=== PATIENT | female | born 1925 | race Caucasian/White ===

== ENCOUNTER 2016-03-25 00:46 | Observation (INO) | payer MEDICARE, OTHER ==
--- NOTE | 2016-03-25 01:06 | ERNOTE ---
Lower Extremity HPI - General Lower Extremities Pain: ankle: right Time Seen by Provider: 03/25/16 00:46 Source: patient Exam Limitations: no limitations - Immun/Allergies/Home Medications Immunizations: IMMUNIZATION HX Immunizations Up to Date Yes History of Influenza Vaccine No Hx Pneumococcal Vaccination Yes Allergies/Adverse Reactions: Allergies Allergy/AdvReac Type Severity Reaction Status Date / Time No Known Allergies Allergy Unverified 05/30/14 00:44 Home Medications: HOME MEDICATIONS Furosemide [Lasix] 20 mg PO BID 05/29/14 [Last Taken Unknown] Lisinopril [Zestril] mg PO 05/29/14 [Last Taken Unknown] Metoprolol Tartrate [Lopressor] mg PO BID 05/29/14 [Last Taken Unknown] Aspirin 81 mg PO DAILY 03/25/16 [Last Taken Unknown] - History of Present Illness Narrative: Patient went to kitchen to get a snack and fell (unsure why), injured her right ankle. She was able to pull herself up in a chair and call EMS. Per EMS her right ankle was bend lateral with no palpable pulse. It was reduced on the scene by EMS with good pulse and splinted. She also complains of rigth shoulder pain, comfortable now after receiving fentany in ambulance Date (Duration): 03/24/16 Time (Timing): 23:50 Location of Incident: home Method of Injury: Reports: fell Reason for Fall: Reports: unknown Loss of Consciousness: Reports: no loss of consciousness Other Injuries: Reports: other Subsequent Symptoms: Denies: sensory loss, numbness Prior Treament: Denies: recently seen, similar symptoms before Review of Systems - Review of Systems Constitutional: Absent: recent illness, fever ENT: Absent: nose congestion, sore throat Respiratory: Absent: shortness of breath Cardiology: Absent: chest pain Gastrointestinal/Abdominal: Absent: nausea, vomiting, abdominal pain Genitourinary: Present: other - chronic incontinence Musculoskeletal: Present: See HPI Neurological: Absent: headache, weakness, numbness - Patient's Past Medical History Patient History - Medical: Diabetes Type 2, Osteoarthritis Patient History - Cardiac/Respiratory: Atrial Fibrillation, Hypertension Patient History - Surgical Procedures: Hysterectomy, Total Knee Replacement, T & A LMP (females 10-50): Menopausal - Social History Living Situations: home Alcohol Use: none Drug Use: none ED Progress - Vital Signs Patient's Vital Signs:: I have reviewed the patient's vital signs. Vital Signs: Vital Signs 03/25/16 00:48 Temperature 36.4 C L Pulse Rate 57 L Respiratory 16 Rate Blood Pressure 152/62 O2 Sat by Pulse 97 Oximetry - EKG EKG: NSR - sinusbradycardia, other - no acute changes EKG read: Interp. by me - X-Ray X-Ray #1 X-Ray: ankle - distal tib fracture and dislocation Interpretation: Interp. by me X-Ray #2 X-Ray: shoulder - no acute findings Interpretation: Interp. by me X-Ray #3 X-Ray: ankle - poor alignment Interpretation: Interp. by me X-Ray #4 X-Ray: ankle - improved alignment with splint redone Interpretation: Interp. by me - Progress/Reassessment Chief Complaint: Ankle Injury/ Pain Progress Note-Subjective: 03/25/16 01:20 took off pillow splint splinted with OCL 03/25/16 01:30 discussed with sherley Browning to admit post splint good cap refill, able to move toes 03/25/16 01:44 discussed with Erica Valenzuela (NRP) sherley to admit for pain control Departure Clinical Impression: Ankle fracture, right Qualifiers: Encounter type: initial encounter Fracture type: closed Qualified Code(s): S82.891A - Other fracture of right lower leg, initial encounter for closed fracture - Departure Disposition: [facility] Condition: Good
[2016-03-25] MEDS ORDERED: MORPHINE SULFATE 2 MG/ML DISP.SYRIN IV ONE (01:27)
[2016-03-25] MEDS ORDERED: MORPHINE SULFATE 2 MG/ML DISP.SYRIN ONE (01:30)
[2016-03-25] MEDS ORDERED: ONDANSETRON HCL/PF 2 MG/ML VIAL IV PRN (02:04)
[2016-03-25] MEDS ORDERED: MORPHINE SULFATE 4 MG/ML SYRG IV PRN (02:04)
[2016-03-25 02:24] LABS: Hematocrit 33.1 % (37.0-47.0); Hemoglobin 10.4 gm/dL (12.5-16.0); Mean Cell Volume 84.4 fl (78-100); Mean Corpuscular Hemoglobin 26.5 pg (27-31); Mean Corpuscular Hgb Conc 31.4 g/dl (32-36); Mean Platelet Volume 10.4 fl (6.0-9.5); Neutrophil % 76.7 % (42-75.0); Platelet Count 175 K/mm3 (150-450); Red Blood Count 3.92 M/mm3 (4.2-5.4); Red Cell Distribution Width 15.2 % (11.5-14.0); White Blood Count 9.1 K/mm3 (4.0-10.5)
[2016-03-25 02:37] LABS: BUN/Creatinine Ratio 25.7 (9.0-21.6)
[2016-03-25 02:38] LABS: Albumin * 3.3 gm/dl (3.4-5.0); Anion Gap 16.3 mmol/L (6.8-13.8); Bilirubin, Total 0.3 mg/dL (0.0-1.1); Ca. Corrected For Albumin 9.2 mg/dL (8.4-10.2); Carbon Dioxide 24.4 mmol/L (24-32.6); Potassium 4.7 mmol/L (3.4-4.6); Total Protein 7.5 gm/dL (6.2-8.2)
--- NOTE | 2016-03-25 02:41 | HP ---
Chief Complaint - Chief Complaint Date of Service: 03/25/16 Time of Service: 02:35 Chief Complaint: "Fall, Ankle Pain". Source of HPI- Pt; reliable, ER Provider report. History of Present Illness: Ms. Montes is a 89-yr-old [place] pt who sees Dr. Guido Reece who is affiliated with the [facility]. Her PMH involves: A-fib, DM II, HTN, & Macular degeneration. Pt reports that she got up to snack tonight and she suddenly lost her balance while in the kitchen. She landed on the RT side of her body. She managed pull up to a chair and called the EMS who brought her to the [facility] ER. She denies having SOB or dizziness prior to the fall. She denies hitting her head on the surface or any objects. She had RT shoulder pain and RT ankle pain following the fall. During evaluation at the ED, the RT Shoulder x-ray did not have any acute findings. However, the RT foot showed dislocation/fracture of the ankle. The foot was aligned with a splint. Pt will need to be admitted inpatient for minimum of 2 midnights or more as she may need surgical intervention which requires pre & post -operative cares. - Patient's Past Medical History Patient History - Medical: Diabetes Type 2, Osteoarthritis, Other - Macular degeneration. Patient History - Cardiac/Respiratory: Atrial Fibrillation, Hypertension Patient History - Surgical Procedures: Hysterectomy, Total Knee Replacement, T & A LMP (females 10-50): Menopausal - Family History Father Family History - Medical: , No pertinent hx Mother Family History - Medical: Family History - Cardiac/Respiratory: Hypertension - Social History Living Situations: home Does anyone smoke in the home?: No Have you smoked in the past 12 months: No Do you dip or chew tobacco: No Alcohol Use: none Drug Use: none - Immunizations Immunizations Up to Date: Yes Hx Pneumococcal Vaccination: Yes History of Influenza Vaccine: Yes Review Of Systems (GEN) - Review of Systems Generalized/Overall Review: Present: Weakness. Absent: Chills, Fever, Diaphoresis, Weight loss EENTM: Present: Blurred Vision - LT. Absent: Eye Pain Respiratory: Present: Cough. Absent: Shortness of Breath Cardiac: Absent: Chest Pain, Edema, Palpitations Abdominal: Absent: Nausea, Vomiting, Hematemesis, Abdominal Pain, Constipation Genitourinary: Present: Dribbling. Absent: Burning, Frequency, Dysuria Musculoskeletal: Present: Joint Pain - RT, Neck Pain Neurological: Absent: Headache, Anxiety, Depressed Skin: Absent: Dryness, Lesions, Lumps Endocrine: Present: No Symptoms Reported. Absent: Intolerance to Cold, Intolerance to Heat Misc: All systems neg except as marked Allergies/Adverse Reactions: Allergies Allergy/AdvReac Type Severity Reaction Status Date / Time No Known Allergies Allergy Unverified 05/30/14 00:44 Home Medications: HOME MEDICATIONS Furosemide [Lasix] 20 mg PO BID 05/29/14 [Last Taken Unknown] Lisinopril [Zestril] mg PO 05/29/14 [Last Taken Unknown] Metoprolol Tartrate [Lopressor] mg PO BID 05/29/14 [Last Taken Unknown] Aspirin 81 mg PO DAILY 03/25/16 [Last Taken Unknown] Exam - Exam Vital Signs: Vital Signs - Last Taken Temp 36.4 C L 03/25/16 00:48 Pulse 55 L 03/25/16 01:54 Resp 18 03/25/16 01:54 BP 130/56 03/25/16 01:54 Pulse Ox 98 03/25/16 01:54 Constitutional: Present: Alert, Oriented x3, No distress ENT Exam: Present: normal ENT inspection, dry mucous membranes Eye Exam: bilateral eye: normal inspection, PERRL Neck: Present: full range of motion, supple, normal inspection, trachea midline Back Exam: Present: normal inspection, no CVA tenderness Breasts: Present: Exam deferred Respiratory: Present: lungs clear, no accessory muscle use, No wheezing Cardiovascular/Chest: Present: normal peripheral pulses, regular rate, rhythm, no murmur Abdomen: Present: Normal bowel sounds, soft, nontender /Rectal: Present: Exam deferred Extremity: Present: lower extremity edema - LT- non- pitting edema, other - Splinted RLE, Skin Exam: Present: no cyanosis, cool/dry Lymphatic: Present: no adenopathy Neurologic: Present: no motor/sensory deficits, alert, oriented x 3. Absent: dizzy/light-headedness Appearance: Present: appropriate appearance, appropriate insight Eye contact: Present: cooperative, good eye contact Thoughts: Present: normal thought pattern, no apparent hallucination Diagnostic Studies: Laboratory Results WBC 9.1 K/mm3 (4.0-10.5) 03/25/16 01:43 RBC 3.92 M/mm3 (4.2-5.4) L 03/25/16 01:43 Hgb 10.4 gm/dL (12.5-16.0) L 03/25/16 01:43 Hct 33.1 % (37.0-47.0) L 03/25/16 01:43 MCV 84.4 fl (78-100) 03/25/16 01:43 MCH 26.5 pg (27-31) L 03/25/16 01:43 MCHC 31.4 g/dl (32-36) L 03/25/16 01:43 RDW 15.2 % (11.5-14.0) H 03/25/16 01:43 Plt Count 175 K/mm3 (150-450) 03/25/16 01:43 MPV 10.4 fl (6.0-9.5) H 03/25/16 01:43 Immature Gran % (Auto) 0.60 % (0.001-0.429) H 03/25/16 01:43 Immature Gran # (Auto) 0.05 K/mm3 (0.000-0.0310) H 03/25/16 01:43 Neutrophils % 76.7 % (42-75.0) H 03/25/16 01:43 Lymphocytes % 12.5 % (20-51) L 03/25/16 01:43 Monocytes % 8.3 % (0.0-9) 03/25/16 01:43 Eosinophils % 1.7 % (0.0-3.0) 03/25/16 01:43 Basophils % 0.2 % (0.0-1.0) 03/25/16 01:43 Nucleated RBC % 0.0 k/mm3 (0-1) 03/25/16 01:43 Neutrophils # 7.0 K/mm3 (1.3-6.0) H 03/25/16 01:43 Lymphocytes # 1.1 k/mm3 (1.5-3.5) L 03/25/16 01:43 Monocytes # 0.8 k/mm3 (0.0-1.0) 03/25/16 01:43 Eosinophils # 0.2 k/mm3 (0.0-0.7) 03/25/16 01:43 Absolute Basophils 0.0 k/mm3 (0.0-0.1) 03/25/16 01:43 Assessment/Plan - Assessment/Plan (1) Ankle fracture, right Assessment: The X-ray film showed RT ankle fracture/dislocation. Ortho consulted by the ERP. Will admit for supportive cares with: immobilization, pain mgt & IVF hydration & also for surgical clearance. The EKG showed Sinus Bradycardia but there were no concerns for ST-T wave changes. Creatinine is mildly elevated at 1.71, but will be corrected with IVF. The CXR will be completed in the AM. According to RCRI score, she has a 0.4% chance of developing a cardiac event max/post- operatively. She is clear to proceed with surgery if that will be determined necessary by the Ortho. Problem: Acute Qualifiers: Encounter type: initial encounter Fracture type: closed Qualified Code(s) : S82.891A - Other fracture of right lower leg, initial encounter for closed fracture (2) HTN (hypertension) Assessment: Keep pain under control, verify medications from pharmacy in am. Problem: Chronic Qualifiers: Hypertension type: essential hypertension Qualified Code(s): I10 - Essential (primary) hypertension (3) Diabetes mellitus Assessment: Cheryle DM II - Accuchecks q 6 hrs. Problem: Chronic (4) A-fib Assessment: Stable- Place on remote telemetry. Verify medications in am. Problem: Chronic
[2016-03-25] MEDS: NORMAL SALINE 1,000 ML IV PRN ×3 (03:37→19:54)
[2016-03-25] MEDS: MORPHINE SULFATE 2 MG/ML DISP.SYRIN IV PRN ×7 (06:57→23:07)
[2016-03-25 08:05] LABS: Hematocrit 32.7 % (37.0-47.0); Hemoglobin 10.3 gm/dL (12.5-16.0); Mean Cell Volume 84.3 fl (78-100); Mean Corpuscular Hemoglobin 26.5 pg (27-31); Mean Corpuscular Hgb Conc 31.5 g/dl (32-36); Mean Platelet Volume 9.6 fl (6.0-9.5); Neutrophil # 7.2 K/mm3 (1.3-6.0); Neutrophil % 76.8 % (42-75.0); Platelet Count 212 K/mm3 (150-450); Red Blood Count 3.88 M/mm3 (4.2-5.4); Red Cell Distribution Width 15.2 % (11.5-14.0); White Blood Count 9.3 K/mm3 (4.0-10.5)
[2016-03-25 08:15] LABS: Anion Gap 15.1 mmol/L (6.8-13.8); BUN/Creatinine Ratio 24.8 (9.0-21.6); Calcium * 9.1 mg/dL (7.9-10.9); Carbon Dioxide 24.5 mmol/L (24-32.6); Estimated Creat Clear 25.6; Potassium 4.6 mmol/L (3.4-4.6)
--- NOTE | 2016-03-25 10:48 | PN ---
Subjective - Date and Time Seen Date: 03/25/16 Time: 09:45 Subjective Narrative: patient seen today with sister at the bedside, pt stated her right shoulder was painful but feeling better than it did on initial adm. right foot is still pain while in splint. pt stated if she is to have surgery done while in hospital, she wishes for procedure performed by Dr chin. If she is not able to have selected provider she wishes to be transfer to [place]. pt and sister stated they are also aware that pt has to be accepted at other facility before transfer. she demonstrated movement of toes to right foot, denies no pallor, numbness, tingling or shortness of breath. Objective - Review of Systems Generalized/Overall Review: Reports: No Symptoms Reported EENTM: Reports: No Symptoms Reported Respiratory: Reports: No Symptoms Reported Cardiac: Reports: No Symptoms Reported Abdominal: Reports: No Symptoms Reported Genitourinary Symptoms: Reports: No Symptoms Reported Musculoskeletal Complaints: Reports: Joint Pain, Other - right ankle pain and right shoulder pain Neurological: Reports: No Symptoms Reported Skin: Reports: No Symptoms Reported Endocrine: Reports: No Symptoms Reported - Vitals Vitals: Last Vital Signs Temp 36.5 C 03/25/16 06:38 Pulse 67 03/25/16 10:00 Resp 18 03/25/16 06:38 BP 133/67 03/25/16 06:38 Pulse Ox 97 03/25/16 06:38 - Abnormal Lab Findings Abnormal Lab Findings: Abnormal Lab Results 03/25/16 03/25/16 Range/Units 07:48 07:48 RBC 3.88 L (4.2-5.4) M/mm3 Hgb 10.3 L (12.5-16.0) gm/dL Hct 32.7 L (37.0-47.0) % MCH 26.5 L (27-31) pg MCHC 31.5 L (32-36) g/dl RDW 15.2 H (11.5-14.0) % MPV 9.6 H (6.0-9.5) fl Immature Gran # (Auto) 0.04 H (0.000-0.0310) K/mm3 Neutrophils % 76.8 H (42-75.0) % Lymphocytes % 11.3 L (20-51) % Monocytes % 10.9 H (0.0-9) % Neutrophils # 7.2 H (1.3-6.0) K/mm3 Lymphocytes # 1.1 L (1.5-3.5) k/mm3 Anion Gap 15.1 H (6.8-13.8) mmol/L BUN 36 H (3-23) mg/dL Creatinine 1.45 H (0.4-1.4) mg/dL Est GFR (Non-Af Amer) 36 L (60-130) mL/min BUN/Creatinine Ratio 24.8 H (9.0-21.6) Random Glucose 137 H (70-110) mg/dL - Exam Constitutional: Present: Alert, Oriented x3, Cooperative, Well developed, Well nourished, No distress, Elderly, Obese ENT Exam: Present: moist mucous membranes Neck: Present: full range of motion Breasts: Present: Exam deferred Respiratory: Present: chest non-tender, lungs clear, normal breath sounds, no respiratory distress Cardiovascular/Chest: Present: normal peripheral pulses, regular rate, rhythm, no chest tenderness, no edema Abdomen: Present: Normal bowel sounds, soft, nontender, nondistended, no rebound tenderness /Rectal: Present: Exam deferred Extremity: Present: other - left foot limited range of motion left ankle splint. left shoulder pain on palpation Skin Exam: Present: normal color, warm/dry, no cyanosis Neurologic: Present: oriented x 3 Appearance: Present: appropriate appearance Eye contact: Present: cooperative, good eye contact Thoughts: Present: normal thought pattern Assessment/Plan Plan Narrative: Ankle fracture, right pt report of mecahanical fall while at home In ER seen on Xray right ankle: severely displaced later and medial malleolus fracture. Ortho consulted and following Immobilization splint was applied in ER Continue with iv/ oral pain medications PT/OT evaluation and treatment. encourage use of I/S Pt is medically appropriate for planned procedure. Hypertension- stable Today BP 133/67 Continue to monitor vital signs May resume home medications Diabetes mellitus- stable Accu-checks q 6 hrs. low sodium/ consistent carb diet low dose sliding scale insulin Acute kidney injury- likely due to oral intake and use of diuretic at home- gradually improving on adm Bun/ cre ---->44/1.71----->36/1.45 gradually improving with IVF encourage oral intake and monitor I/O Will hold lisinopril, Lasix and metformin for now. will resume when SY improved BMP in am A-fib- stable Continue with telemetry monitoring On adm EKG: Sinus Bradycardia but there were no concerns for ST-T wave changes. while at home pt was on aspirin 325mg daily, rate control with metoprolol 50mg BID Continue to monitor vital signs Code status : DNR VTE ppx: SCD - Problems/Diagnosis (1) Ankle fracture, right Problem: Acute Qualifiers: Encounter type: initial encounter Fracture type: closed Qualified Code(s) : S82.891A - Other fracture of right lower leg, initial encounter for closed fracture (2) A-fib Problem: Chronic (3) Diabetes mellitus Problem: Chronic (4) HTN (hypertension) Problem: Chronic Qualifiers: Hypertension type: essential hypertension Qualified Code(s): I10 - Essential (primary) hypertension
[2016-03-25] MEDS ORDERED: ACETAMINOPHEN 500 MG TABLET PO PRN (11:17)
[2016-03-25] MEDS: INSULIN LISPRO 100 UNITS/ML VIAL SC SCH ×3 (11:57→21:10)
--- NOTE | 2016-03-25 13:22 | CONS ---
- Reason for consultation (1) Ankle fracture, right Date of Service: 03/25/16 HPI - General Date of Service: 03/25/16 Narrative: Patient is 89-year-old female with history of falls this morning early patient states that she had immediate onset of pain and noted deformity to her right ankle she was transported by ambulance to [facility] emergency room x-rays were obtained revealing a comminuted displaced bimalleolar ankle fracture. I was consult. Advised that the patient should be splinted. Patient was then admitted to the hospital for pain control. Source: patient Exam Limitations: no limitations - History of Present Illness Allergies/Adverse Reactions: Allergies No Known Allergies Allergy (Unverified 05/30/14 00:44) Home Medications: Home Medications Medication Instructions Recorded Last Taken Acetaminophen [Tylenol] 1 - 2 tab PO Q4H PRN 03/25/16 Unknown Aspirin 325 mg PO DAILY 03/25/16 Unknown Calcium Carbonate/Vitamin D3 1 each PO DAILY 03/25/16 Unknown [Calcium 600 + D3 Softgel] Furosemide [Lasix] 20 mg PO DAILY 03/25/16 Unknown Glucosamine HCl 500 mg PO DAILY 03/25/16 Unknown Lisinopril [Zestril] 40 mg PO DAILY 03/25/16 Unknown Metoprolol Tartrate [Lopressor] 50 mg PO BID 03/25/16 Unknown Multivitamin [One Daily Essential] 1 each PO DAILY 03/25/16 Unknown Simvastatin [Zocor] 10 mg PO HS 03/25/16 Unknown Vitamin A/Vit C/Vit E/Selenium 1 each PO DAILY 03/25/16 Unknown [Prevent Softgels] metFORMIN HCL [Glucophage] 500 mg PO BIDWM 03/25/16 Unknown - Patient's Past Medical History Patient History - Medical: Diabetes Type 2, Osteoarthritis, Other - Macular degeneration. Patient History - Cardiac/Respiratory: Atrial Fibrillation, Hypertension Patient History - Surgical Procedures: Hysterectomy, Total Knee Replacement, T & A LMP (females 10-50): Menopausal - Family History Father Family History - Medical: , No pertinent hx Mother Family History - Medical: Family History - Cardiac/Respiratory: Hypertension - Social History Living Situations: home Does anyone smoke in the home?: No Smoking Status: Never smoker Have you smoked in the past 12 months: No Do you dip or chew tobacco: No Alcohol Use: none Drug Use: none Procedures CL REDUC DISLOC-SHOULDER (12/02/11) Medications - Medications Current Medications: Current Medications Sodium Chloride (Sodium Chloride 0.9%) 1,000 mls @ 125 mls/hr IV .Q8H PRN PRN Reason: HYDRATION Stop: 04/24/16 03:10 Last Admin: 03/25/16 11:48 Dose: 125 mls/hr Insulin Human Lispro (Humalog) 0 units SC ACHSINS DENILSON PRN Reason: Protocol Stop: 04/24/16 12:01 Last Admin: 03/25/16 11:57 Dose: Not Given Morphine Sulfate (Morphine Sulfate) 1 mg IV Q30M PRN PRN Reason: Severe Pain Stop: 04/24/16 02:05 Last Admin: 03/25/16 11:52 Dose: 1 mg Physical Examination - Exam Narrative: Patient has a splint on to her right ankle andfoot. The splint was removed. She had noted tenting over the medial malleolar region. He had a small fracture blister present over the medial aspect of her ankle. Patient has a large amount of swelling noted to the right ankle and foot. There is noted ecchymosis throughout. No evidence of open wounds were seen. Patient has a decreased but present dorsalis pedis and posterior tibial pulse. Admits normal light touch sensation to the right foot and ankle. Vital Signs: Vital Signs - Last Taken Temp 36.4 C L 03/25/16 10:59 Pulse 64 03/25/16 10:59 Resp 16 03/25/16 10:59 BP 117/52 03/25/16 10:59 Pulse Ox 97 03/25/16 10:59 O2 Oxygen Delivery Method Room Air - Results and Findings: Narrative: Patient initially had some concerns about wanting to be transported to [facility] prior to our consultation. Wishes to follow-up and have surgery with Dr. Coe. This case been discussed and reviewed with Dr. Caal patient's x-rays have been reviewed. This revealed that the reduction wasn't complete from the emergency room. Patient was seen in her hospital bed today. With gentle manipulation we were able to reduce her ankle back into a normal neutral position. She tolerated the procedure well. A new well-padded AO splint was placed with posterior splints. We will be working with her as far as arrangements for care. She will need to be nonweightbearing on her right foot ankle. Upon discharge patient will have follow-up arranged with Dr. Coe for next week. She is to keep her foot ankle elevated diligently. Lab/Microbiology results last 24 hrs: Abnormal/Pending Laboratory Last 24 HRS 03/25/16 03/25/16 07:48 07:48 RBC 3.88 L Hgb 10.3 L Hct 32.7 L MCH 26.5 L MCHC 31.5 L RDW 15.2 H MPV 9.6 H Immature Gran # (Auto) 0.04 H Neutrophils % 76.8 H Lymphocytes % 11.3 L Monocytes % 10.9 H Neutrophils # 7.2 H Lymphocytes # 1.1 L Anion Gap 15.1 H BUN 36 H Creatinine 1.45 H Est GFR (Non-Af Amer) 36 L BUN/Creatinine Ratio 24.8 H Random Glucose 137 H - Assessments/Findings (1) Ankle fracture, right Problem: Acute Qualifiers: Encounter type: initial encounter Fracture type: closed Qualified Code(s) : S82.891A - Other fracture of right lower leg, initial encounter for closed fracture
[2016-03-25] MEDS: ASPIRIN 325 MG TABLET.DR PO SCH (14:31)
--- NOTE | 2016-03-25 16:28 | PN ---
Progess Note - Interim Narrative: 03/25/16 16:25 Closed reduction and splinting attempted twice with inability to maintain reduction in splint. Patient will require closed reduction and external fixator placement in the OR. Risks and benefits discussed with patient. Consent obtained on the floor. Will plan for d/c to nursing facility likely tomorrow with plan for her to follow up in Orthopedic clinic as an outpatient to follow her swelling and determine timing for definitive fixation. Keep patient NPO. Joseph Meléndez MD
[2016-03-25] MEDS ORDERED: SIMVASTATIN 10 MG TABLET PO SCH (21:00)
[2016-03-25] MEDS ORDERED: ceFAZolin SODIUM 1 GM VIAL IV ONE (21:15)
[2016-03-25] MEDS ORDERED: NORMAL SALINE 1,000 ML IV ONE (21:52)
[2016-03-25] MEDS: NORMAL SALINE 1,000 ML IV ONE (21:55)
--- NOTE | 2016-03-25 22:39 | OR ---
Operative Report - Dictated Report Narrative: Date: 03/25/2016 Surgeon: Joseph Meléndez M.D. [employer] Patterns: Rey Pelaez PA-C Anesthesia: Spinal Preoperative diagnosis: Right unstable bimalleolar ankle fracture. Postoperative diagnosis: Right unstable bimalleolar ankle fracture. Procedure: 1. Closed reduction of right bimalleolar ankle fracture. 2. Placement of uniplanar ankle spanning external fixator Estimated blood loss: None Tourniquet time: 28 Minutes at 300 millimeters mercury Retained implants: [employer] Jet-X ankle spanning external fixator Specimens: None Complications: None Indications: Gilma is a 89-year-old female who sustained a ground-level fall resulting in a injury to the right ankle. They were seen in the emergency department with images obtained revealing the above injury. She was admitted to the hospital by internal medicine for pain control and orthopedics was consulted. It was noted that she was incompletely reduced on her plain films therefore a closed reduction with splint placement was attempted on the floor. Postreduction films demonstrated loss of reduction so a second closed reduction attempt was made under fluoroscopic guidance using a mini C-arm. We obtained adequate reduction under C-arm however by the time she received her postreduction films, her talus had again shifted laterally. Because of the instability of her fracture, we were concerned about the medial skin over the medial malleolus and therefore the decision was made to proceed with external fixation of her fracture to allow swelling reduction in preparation for definitive open reduction internal fixation. The risks, benefits, and treatment options were discussed with the patient and the plan for closed reduction and ankle spanning external fixator placement was discussed. Risks were reviewed including , blood clots, nerve/tendon/blood vessel injury, failure of implants, wound complications, and need for additional procedures. Procedure: After a timeout, a spinal anesthetic was administered by the anesthesia provider without complication. Beanbag was utilized in order bump the operative leg and a well-padded tourniquet was applied to the operative thigh. The operative leg was placed on a bone foam ramp. The splint was removed and the leg was pre-scrubbed with chlorhexidine then prepped and draped in a standard sterile fashion. Extremity was gravity exsanguinated and tourniquet was inflated. Initial attention was turned to the proximal tibial pins. These were drilled in a bicortical fashion in the proximal aspect of the tibial shaft at the appropriate width to fit the external fixator clamp. Pin depth was checked via fluoroscopy. Next we turned our attention to placing our calcaneal pin using a lateral fluoroscopic image. This was driven across the calcaneus from medial to lateral in the appropriate position. All pin sites were then dressed with Xeroform and 2 inch Armaan rolls. The proximal clamp was placed with angled bars attached. 2 bars were then utilized to span the ankle from the proximal clamp bars to the calcaneal pin medial and laterally in an A-frame fashion. The ankle joint was then closed reduced and its position confirmed via fluoroscopy. The reduction was held while all clamps were tightened down. We again checked our reduction on AP and lateral and, after confirmation of our reduction, performed final tightening of all of our clamps. The lower leg was then wrapped with Sof-Rol and an Robert wrap and the tourniquet was deflated. All sponge, sharp, and instrument counts were correct prior to closing. The patient was taken to the PACU in stable condition.
[2016-03-25] MEDS: METOPROLOL TARTRATE 50 MG TABLET PO SCH (23:06)
[2016-03-26] MEDS: NORMAL SALINE 1,000 ML IV ONE (01:27)
[2016-03-26] MEDS: MORPHINE SULFATE 2 MG/ML DISP.SYRIN IV PRN ×6 (01:27→10:18)
[2016-03-26] MEDS: NORMAL SALINE 1,000 ML IV PRN ×2 (01:27→10:38)
[2016-03-26 05:45] LABS: Hematocrit 29.2 % (37.0-47.0); Hemoglobin 9.1 gm/dL (12.5-16.0); Mean Cell Volume 85.4 fl (78-100); Mean Corpuscular Hemoglobin 26.6 pg (27-31); Mean Corpuscular Hgb Conc 31.2 g/dl (32-36); Neutrophil # 4.3 K/mm3 (1.3-6.0); Neutrophil % 65.5 % (42-75.0); Platelet Count 177 K/mm3 (150-450); Red Blood Count 3.42 M/mm3 (4.2-5.4); Red Cell Distribution Width 15.1 % (11.5-14.0); White Blood Count 6.6 K/mm3 (4.0-10.5)
[2016-03-26 05:57] LABS: Anion Gap 11.4 mmol/L (6.8-13.8); BUN/Creatinine Ratio 19.5 (9.0-21.6); Calcium * 8.1 mg/dL (7.9-10.9); Carbon Dioxide 25.2 mmol/L (24-32.6); Estimated Creat Clear 31.4; Potassium 4.6 mmol/L (3.4-4.6)
[2016-03-26] MEDS: INSULIN LISPRO 100 UNITS/ML VIAL SC SCH ×2 (07:40→11:46)
[2016-03-26] MEDS: METOPROLOL TARTRATE 50 MG TABLET PO SCH (08:27)
[2016-03-26] MEDS: ASPIRIN 325 MG TABLET.DR PO SCH (08:27)
[2016-03-26] MEDS ORDERED: MULTIVITAMINS 1 CAP CAPSULE PO SCH (09:00)
[2016-03-26] MEDS ORDERED: oxyCODONE HCL/ACETAMINOPHEN 1 TAB TABLET PO PRN (10:16)
--- NOTE | 2016-03-26 11:27 | DS ---
(1) Ankle fracture, right Diagnosis(s): Fracture dislocation, Right ankle s/p closed reduction with External Fixation. For ORIF by Ortho probably next week. Problem: Acute Qualifiers: Encounter type: initial encounter Fracture type: closed Qualified Code(s) : S82.891A - Other fracture of right lower leg, initial encounter for closed fracture (2) A-fib Problem: Chronic (3) Diabetes mellitus Problem: Chronic Qualifiers: Diabetes mellitus type: type 2 (4) HTN (hypertension) Problem: Chronic Qualifiers: Hypertension type: essential hypertension Qualified Code(s): I10 - Essential (primary) hypertension Description of Stay: Frances Montes is a 89-yr-old [place] pt who is a patient of Dr. Guido Reece from [facility]. Her PMH involves: A-fib, DM II, HTN, & Macular degeneration. Pt reports that she got up to snack on the day of admission ( 03/25/2016) and she suddenly lost her balance while in the kitchen. She landed on the RT side of her body. She managed pull up to a chair and called the EMS who brought her to the [facility] ER. She denied having SOB or dizziness prior to the fall. She denies hitting her head on the surface or any objects. She had RT shoulder pain and RT ankle pain following the fall. In the ED, the RT Shoulder x-ray did not have any acute findings. However, the RT foot showed dislocation/fracture of the ankle. The foot was closed reduced and immobilzed with a posterior splint but her her fracture was unstable. She underwent closed reduction with external fixation under spinal anesthesia with plan for ORIF at a later date. She will be non weight bearing . Dr. Blanco Olvera will be following up with the patient at the [facility] . Her PCP is Dr. Reece. Procedures Performed: see notes below List Procedures: closed reduction with external fixation Discharge Disposition: [facility] Disposition: [facility] Condition: Good Discharge Activity: Non-Weight bearing Discharge Diet: Consistent carbs, Low salt Referrals: Guido Reece MD [Primary Care Provider] - Additional Patient Instructions (free text): Follow up with Dr. Meléndez on March 28 at 10:45. Dr. Cas Olvera will be following up with the patient while in the [place]. Prescriptions (Any new or edited meds): Oxycodone HCl [Oxycontin] 10 mg PO BID #30 tab.er.12h oxyCODONE HCL [Oxycontin] 10 mg PO Q12H #14 tab oxyCODONE HCL/ACETAMINOPHEN [Percocet 5 MG/325 MG] 1 tab PO Q4H PRN #30 tablet PRN Reason: Moderate Pain Complete Home Medications List: Complete Home Medication List: Acetaminophen [Tylenol] 1 - 2 tab PO Q4H PRN 03/25/16 Aspirin 325 mg PO DAILY 03/25/16 Calcium Carbonate/Vitamin D3 [Calcium 600 + Vit D 400 Softgl] 1 each PO DAILY Furosemide [Lasix] 20 mg PO DAILY 03/25/16 Glucosamine HCl 500 mg PO DAILY 03/25/16 Lisinopril [Zestril] 40 mg PO DAILY 03/25/16 Metoprolol Tartrate [Lopressor] 50 mg PO BID 03/25/16 Multivitamin [One Daily Essential] 1 each PO DAILY 03/25/16 Simvastatin [Zocor] 10 mg PO HS 03/25/16 Vitamin A/Vit C/Vit E/Selenium [Prevent Softgels] 1 each PO DAILY 03/25/16 metFORMIN HCL [Glucophage] 500 mg PO BIDWM 03/25/16 Oxycodone HCl [Oxycontin] 10 mg PO BID #30 tab.er.12h 03/26/16 oxyCODONE HCL [Oxycontin] 10 mg PO Q12H #14 tab 03/26/16 oxyCODONE HCL/ACETAMINOPHEN [Percocet 5 MG/325 MG] 1 tab PO Q4H PRN #30 tablet 03/26/16
[2016-03-26 11:48] VITALS: BP 122/66
== END 2016-03-26 13:45 ==
LOC: ER 00:46 → MS 01:56 → UNDOADMOB 01:56 → OBSVTOIN 01:56 → INTOOBSV 01:56 → OBSVTOIN 03:08 → MS 03:08 → INTOOBSV 03:08 → OBSVTOIN 07:06 → INTOOBSV 07:06
PROVIDERS: ADMIT Nurse Practitioner; ATTEND Internal Medicine
PROC: 0QSG3BZ Reposition Right Tibia with Monoplanar External Fixation Device, Percutaneous Approach (ICD-10-PCS; principal; 2016-03-25 21:00)
DX: S82.841A Displaced bimalleolar fracture of right lower leg, initial encounter for closed fracture (principal); I10 Essential (primary) hypertension; E11.9 Type 2 diabetes mellitus without complications; I48.2 Chronic atrial fibrillation
CPT/HCPCS: 20690; 27810; 36415; 71010; 73030; 73610; 80048; 80053; 85025; 86850; 86900; 93005; 96374; 96376; 97162; 97166; 99283; G0378; G8978; G8979; G8980

== ENCOUNTER 2016-04-07 11:05 | Day surgery (SDC) | payer MEDICARE, OTHER ==
[~2016-04-07 11:05] MED LIST: HYDROmorphone HCL 2 MG/ML VIAL IV PRN; RINGERS SOLUTION,LACTATED 1,000 ML IV PRN; ceFAZolin SODIUM 1 GM VIAL IV PRN
[2016-04-07] MEDS ORDERED: RINGERS SOLUTION,LACTATED 1,000 ML IV ONE ×5 (12:50→15:25)
[2016-04-07] MEDS ORDERED: BUPIVACAINE HCL/EPINEPHRINE 50 ML VIAL IJ ONE (13:25)
[2016-04-07] MEDS: oxyCODONE HCL/ACETAMINOPHEN 1 TAB TABLET PO PRN ×2 (16:05→16:40)
[2016-04-07 17:16] VITALS: BP 154/77
--- NOTE | 2016-04-07 17:43 | OR ---
Operative Report - Dictated Report Narrative: Date: 04/07/2016 Surgeon: Joseph Meléndez M.D. Podiatric Medicine Doctor: Rey Pelaez PA-C Anesthesia: Spinal plus local anesthetic Preoperative diagnosis: Right bimalleolar ankle Fracture. Postoperative diagnosis: Right bimalleolar ankle Fracture. Procedure: 1. Open reduction internal fixation right bimalleolar ankle fracture. 2. Intra-operative interpretation of radiographs. Estimated blood loss: None Tourniquet time: 97 Minutes at 325 millimeters mercury Retained implants: [employer] 7-hole one third tubular plate with associated screws on the fibula, María Sta-mavis 2.5 mm suture anchor, [employer] bio Raptor suture anchor, [employer] footprint anchor in the medial malleolus Specimens: None Complications: None Indications: Gilma is a 89-year-old female who suffered a ground-level fall resulting in a injury to the right ankle. They were seen in the emergency department with images obtained revealing the above injury. She was admitted to the hospital for pain control and placed in a temporary splint. Orthopedics was counseled of the following morning and Crowell films revealed a malreduced right ankle fracture dislocation. We attempted closed reduction and splinting 2 on the floor however we were unable to hold her reduced in a splint. The decision was made to take her to the operating room for external fixation of her ankle fracture as temporary fixation to allow for swelling reduction until definitive fixation. Her soft tissue swelling has been monitored in clinic in her fixator and was deemed amenable to definitive surgical fixation. The risks, benefits, and treatment options were discussed with the patient and the plan for open reduction internal fixation was discussed. Risks were reviewed including , blood clots, nerve/tendon/blood vessel injury, malunion, nonunion, failure of implants, prominent implants, arthrosis, persistent pain, need for additional procedures. Procedure: After a timeout, anesthetic consisting of 2 g of Ancef was administered. Beanbag was utilized in order bump the operative leg and a well-padded tourniquet was applied to the operative thigh. The splint was removed and the leg was pre-scrubbed with chlorhexidine then prepped and draped in a standard sterile fashion. Extremity was exsanguinated and tourniquet was inflated. Initial attention was then turned to the lateral malleolus. A lateral incision was made over the fibular fracture. Subcutaneous dissection was carried down to the fibula protecting the superficial peroneal nerve. The fracture was identified and was noted to be transverse through the metaphyseal region of the fibula. After preparing the bony edges and reducing the fracture, a 2.0 mm Any wire was utilized in order to temporarily stabilize the fracture. The fracture was then definitively stabilized using a 7-hole one third tubular plate. Fluoroscopy was used in order to confirm the appropriate placement and length of the implants. Care was taken to avoid placing screws into the ankle joint and the syndesmosis. Once it was felt that the fibula was adequately stabilized we turned our attention to the medial malleolus. Curvilinear incision was made over the anterior medial aspect of the distal tibia. Care was taken to protect the saphenous vein and nerve. The medial malleolus fracture was identified and noted to be more of an avulsion of the deltoid ligament. There was a small bony fragment which was too small to hold any kind of screw or wire fixation. The joint was visualized and there appeared to be no chondral damage. The joint was thoroughly irrigated. We then proceeded with a repair of the deltoid ligament. This was done using one 2.5 mm María stay tack suture anchor and a [employer] bio Raptor suture anchor both in the footprint of the deltoid. The sutures were passed through the deltoid ligament and horizontal mattress fashion and tied down. The free suture limbs were then brought through a footprint anchor which was placed more proximally in the medial malleolus bringing the deltoid down in a suture bridge fashion. The syndesmosis was stressed and was noted to be stable. There was no significant talar tilt. The mortise was symmetrical and intact. The wounds were then thoroughly irrigated. Subcutaneous tissue was repaired over the implants utilizing 3-0 Vicryl in an interrupted deep dermal fashion. The skin was closed utilizing interrupted 4-0 nylon. Xeroform, 4 x 4's, soft roll, and a well-padded AO splint was applied. Patient was then awoken and transferred to postanesthesia care in stable condition. All sponge, sharp, and instrument counts were correct prior to closing the wounds.
== END 2016-04-07 11:06 | disposition home or self-care (01) ==
LOC: AMB 11:05
PROVIDERS: ATTEND Orthopaedic Surgery
PROC: 0QSG04Z Reposition Right Tibia with Internal Fixation Device, Open Approach (ICD-10-PCS; principal; 2016-04-07 13:20)
DX: S82.841A Displaced bimalleolar fracture of right lower leg, initial encounter for closed fracture (principal); E11.9 Type 2 diabetes mellitus without complications; I48.91 Unspecified atrial fibrillation; I10 Essential (primary) hypertension; E78.5 Hyperlipidemia, unspecified; I73.9 Peripheral vascular disease, unspecified; Z68.34 Body mass index [BMI] 34.0-34.9, adult